=== PATIENT | female | born 1965 | race Caucasian/White ===

== ENCOUNTER 2019-12-08 09:25 | Emergency (ER) | payer MEDICARE, SELFPAY ==
[2019-12-08 09:31] VITALS: BMI 15.5
[2019-12-08 09:34] VITALS: BP 111/79; PULSE 95; RESP 18; TEMP 37; O2SAT 99
--- NOTE | 2019-12-08 10:03 | XR_ITS ---
WS: [id number] EXAM: AP CHEST: PORTABLE UPRIGHT DATE OF EXAM: 12/08/2019, 1030 hours COMPARISON: NONE HISTORY: Patient is 54 years old with dyspnea and cough. Seizure activity. FINDINGS: The cardiac silhouette is normal in size. The mediastinal contours are normal. The pulmonary vas cularity is normal. Chronic lung changes seen. Lungs are hyperinflated. Apical capping mainly on the right. There are surgical staple lines seen in the right superior hilar region with findings of an o ld right thoracotomy presumably related to cancer surgery. Please correlate. Right pleural thickenin g superiorly blunting of the right costophrenic angle. No effusion or pneumothorax. Overall bone dens ity is decreased No acute bony abnormality is seen. XR/XR chest 1V portable [id number] IMPRESSION: Old right thoracotomy changes with posterior staple lines in the right hilum al diogenes the right paratracheal region. Pleural thickening presumably postsurgical i n nature involving the right hemithorax. Chronic lung changes with hyperinflati on. No infiltrate is seen. No definite pulmonary nodule noted by this method of evaluation.
--- NOTE | 2019-12-08 10:03 | ECG_ITS ---
[facility] Test Date: 2019-12-08 Pat Name: Syl Gallo Department: Room: Gender: Female Asset Management Coordinator: : 1965 Requested By: Mark Anne Order Number: [id number] Vale MD: Andrez Tao M.D. Measurements Intervals [place] Rate: 87 P: 70 AK: 210 QRS: 74 QRSD: 100 T: -56 QT: 391 QTc: 471 Interpretive Statements SINUS RHYTHM WITH FIRST DEGREE AV BLOCK ST DEVIATION AND MODERATE T-WAVE ABNORMALITY, CONSIDER ANTEROLATERAL ISCHEMIA [-0.1+ mV T WAVE IN V3-V6] ST DEVIATION AND MODERATE T-WAVE ABNORMALITY, CONSIDER INFERIOR ISCHEMIA [-0.1+ mV T WAVE IN II/aVF] No previous ECG available for comparison Electronically Signed On 12-08-2019 18:58:35 CDT by Andrez Tao M.D. [id number]
[2019-12-08] MEDS: sodium chloride 0.9% 1,000 ML 999 ML IV (10:10)
[2019-12-08 10:11] LABS: Basophils % 0.7 %; Eosinophils % 0.7 %; Hemoglobin 10.9 g/dL (11.5-15.3); Lymphocytes # 1.1 10^3/uL (0.8-4.8); Lymphocytes % 26.2 %; Mean Corpuscular Hemoglobin 30.6 pg (28.0-34.0); Mean Corpuscular Volume 92.7 fL (81-99); Mean Platelet Volume 8.7 fL (7.4-10.4); Monocytes # 0.3 10^3/uL (0.2-0.9); Monocytes % 6.9 %; Neutrophils # 2.78 10^3/uL (1.8-7.7); Neutrophils % 64.3 %; Nucleated Red Blood Cells % 0 %; Platelet Count 213 10^3/cmm (130-400); Red Blood Count 3.56 10^6/uL (4.1-5.3); White Blood Count 4.3 10^3/uL (4.0-10.0)
--- NOTE | 2019-12-08 10:18 | ED_ITS ---
HPI - Seizure General: Chief Complaint: Seizure Stated Complaint: SEIZURE Time Seen by Provider: 12/08/19 09:28 History of Present Illness: HPI Narrative: 84-year-old female comes in complaining of seizures. She has been having seizures since 2009 she is not on any medications for it she does not know any particular triggers. She had 2 this morning 1 at 3 AM another at 8 AM she does tell me she can remember some of the events and during the seizure. The first 1 happened at 3 AM she got up to make something to eat and then her witnessed her having a convulsive- like episode that lasted for a few minutes in a chair she was able to remember immediately after the seizure letter happened prior. It does not sound like there is any postictal phase second episode happened while they are in a vehicle on the way to the hospital and a friend called in the back and was able to somehow stimulator and stopped his seizure. Patient states she cannot recall anything about that particular seizure. They usually see Ambrosio in [place] and then not seen him recently. She as far she knows she is not on any antiseizure medications. She does tell me she thinks at one point she had an EEG and seen a neurologist but was not started on anything she seems to recall that they told her they could not find any thing. The time that I seen the patient she is not postictal. complaint: seizure Onset (ago): minute(s) Description of Episode: loss of consciousness and tonic-clonic movement Duration of episode: 3 Witnessed: Yes - by Bystander () Trauma: No Seizure History: Yes Place: Home Possible Precipitating Event: none Associated symptoms: Reports weakness; Deny chest pain, confusion, cough, diaphoresis, fever(s), anorexia, malaise, rash, short of breath or syncope Treatments prior to arrival: none Review of Systems Const: Denies: fever(s), malaise or diaphoresis ENMT: Denies: throat pain, ear or mastoid pain, nasal discharge or nasal congestion Card: Denies: chest pain or syncope Resp: Denies: dyspnea, productive cough or non-productive cough GI: Denies: abdominal pain, nausea, vomiting, hematemesis, coffee ground emesis, diarrhea, constipation, bloating, hematochezia or melena : Denies: flank pain, difficulty voiding, dysuria, urinary frequency or urinary urgency Skin/Breast: Denies: rash or pruritus Neuro: Denies: confusion PFSH ED PFSH: Medical History (Updated 12/08/19 @ 11:58 by Mark Munson DO) Lung cancer Diagnosed and treated first in 2011 and then a recurrence in 2016. Patient states she has not have any current follow-up with [place] where she was previously treated Seizures Surgical History (Updated 12/08/19 @ 10:36 by Mark Munson DO) History of appendectomy Patient reports she had postop flexion and had a second procedure to incise and drain abscess Social History (Updated 12/08/19 @ 10:36 by Mark Munson DO) Smoking and tobacco status: current every day smoker cigarettes Alcohol intake: never Physical Exam Const: COMMON NORMALS: no acute distress GENERAL APPEARANCE: cooperative and comfortable ORIENTATION/CONSCIOUSNESS: Yes awake, Yes oriented to person, Yes oriented to place and Yes oriented to time HENMT: COMMON NORMALS: normocephalic, atraumatic and hearing grossly normal bilaterally HEAD & SCALP: normocephalic and atraumatic Eye: COMMON NORMALS: Equal, round and reactive pupils present, EOMs intact bilaterally, conjunctivae normal and no scleral icterus CONJUNCTIVA: Yes conjunctivae normal PUPIL: Yes Equal, round and reactive pupils present Neck/C-Spine: COMMON NORMALS: full ROM, no lymphadenopathy, supple and no JVD Lymph: LYMPHATIC: no lymphadenopathy noted and no lymphedema noted Resp: COMMON NORMALS: normal respiratory effort, No retractions, No use of accessory muscles and clear to auscultation bilaterally AUSCULTATION: clear to auscultation bilaterally Cardio: COMMON NORMALS: no JVD, regular rate, regular rhythm and No murmurs present (Cardio) RATE: regular rate RHYTHM: regular rhythm GI: COMMON NORMALS: Soft to palpation and No hepatosplenomegaly present AUSCULTATION: Yes normoactive bowel sounds PALPATION: Yes Soft to palpation, No Tenderness to palpation present (GI), No Guarding due to palpation present (GI) and Yes No hepatosplenomegaly present Extremity: COMMON NORMALS: normal to inspection, capillary refill normal, no clubbing, cyanosis or edema, no calf tenderness and no pedal edema Neuro: SENSORIUM/ORIENTATION: Yes oriented to person, Yes oriented to place and Yes oriented to time Skin: COMMON NORMALS: no rashes or lesions noted GENERAL SKIN EXAM: no rashes or lesions noted Course Vital Signs: Vital signs: Vital Signs Temperature 98.6 F 12/08/19 09:34 Pulse Rate 95 12/08/19 09:34 Respiratory Rate 18 12/08/19 09:34 Blood Pressure 111/79 12/08/19 09:34 Pulse Oximetry 99 12/08/19 09:34 MDM - Seizure MDM Narrative: Medical decision making narrative: Reviewed urine. Patient denies any dysuria urgency or frequency urgency infectious is going to the bathroom will bit less is not having any pain or burning I do not believe her urine at this point represents a cystitis we will go ahead and have her return if she has any further problems or develops symptoms we will get a set up for an outpatient EEG and refer to neurology. Lab Data: Labs: Lab Results 12/08/19 12/08/19 12/08/19 Range/Units 09:38 09:38 12:08 WBC 4.3 (4.0-10.0) 10^3/ uL RBC 3.56 L (4.1-5.3) 10^6/u L Hgb 10.9 L (11.5-15.3) g/dL Hct 33.0 L (37.0-47.0) % MCV 92.7 (81-99) fL MCH 30.6 (28.0-34.0) pg MCHC 33.0 (30.0-36.0) g/dL RDW 15.0 (12.1-15.1) % Plt Count 213 (130-400) 10^3/c mm MPV 8.7 (7.4-10.4) fL Neut % (Auto) 64.3 % Lymph % (Auto) 26.2 % Churchill % (Auto) 6.9 % Eos % (Auto) 0.7 % Baso % (Auto) 0.7 % Neut # (Auto) 2.78 (1.8-7.7) 10^3/u L Lymph # (Auto) 1.1 (0.8-4.8) 10^3/u L Churchill # (Auto) 0.3 (0.2-0.9) 10^3/u L Eos # (Auto) 0.0 (0.0-0.8) 10^3/u L Baso # (Auto) 0.0 (0.0-0.1) 10^3/u L Nucleated RBC % (a uto) 0 % Nucleated RBCs # 0.0 /100WBC Sodium 136 (136-145) mmol/L Potassium 3.4 L (3.5-5.1) mmol/L Chloride 101 (98-107) mmol/L Carbon Dioxide 22 (22-29) mmol/L Anion Gap 16.4 (5-19) BUN 15 (6-20) mg/dL Creatinine 1.0 H (0.5-0.9) mg/dL GFR Calculation 57.4 L (90-130) mL/min Glucose 139 H (65-115) mg/dL Calculated Osmolal ity 281 L (285-295) mOsm/k g Calcium 9.2 (8.5-10.5) mg/dL Magnesium 1.9 (1.7-2.3) mg/dL Total Bilirubin 0.3 (0.15-1.2) mg/dL AST 17 (0-32) U/L ALT 11 (0-33) U/L Alkaline Phosphata se 100 (35-105) IU/L Creatine Kinase 42 (26-192) U/L Total Protein 6.7 (6.6-8.7) g/dL Albumin 3.7 (3.5-5.2) g/dL Globulin 3.0 (1.3-4.6) g/dL Urine Color Yellow (Yellow) Urine Appearance Sl hazy (CLEAR) Urine pH 5 (5-7) Ur Specific Gravit y 1.020 (1.005-1.030) Urine Protein Neg (Negative) Urine Glucose (UA) Norm (Normal) Urine Ketones Negative (Negative) Urine Blood Neg (Negative) Urine Nitrate Negative (Negative) Urine Bilirubin Neg (NEGATIVE) Urine Urobilinogen Norm (Negative) mg/dL Ur Leukocyte Chanel ase Trace H (Negative) Urine RBC 5-10 H (0-2) /hpf Urine WBC 15-25 H (0-5) /hpf Ur Squamous Epith Cells 10-15 H (0-5) Amorphous Sediment Not Reportable Urine Bacteria 2+ H (NONE) Discharge Plan Discharge Patient Disposition: Home Clinical Impression: Pseudoseizure Condition: Stable Prescriptions: No Action gabapentin 600 mg Tablet 1,200 mg PO TID PRN (Reason: Pain) RF: 0 ropinirole 1 mg Tablet 3 mg PO DAILY RF: 0 Celexa 40 mg Tablet 40 mg PO DAILY RF: 0 Keppra 500 mg Tablet 500 mg PO BID RF: 0 potassium chloride 10 mEq Tablet Extended Release 20 meq PO DAILY RF: 0 hydroxyzine HCl 50 mg Tablet 50 mg PO Q4H PRN (Reason: unknown) RF: 0 simvastatin 40 mg Tablet 40 mg PO QPM RF: 0 levothyroxine 25 mcg Tablet 25 mcg PO DAILY RF: 0 Ativan 0.5 mg Tablet 0.5 mg PO DAILY PRN (Reason: unknown) RF: 0 Calcium 500 500 mg calcium (1,250 mg) Tablet 500 mg PO DAILY RF: 0 Ambien 5 mg Tablet 5 mg PO BEDTIME RF: 0 Ventolin HFA 90 mcg/actuation Hfa Aerosol Inhaler 2 puff INHALATION 6XD PRN (Reason: Shortness Of Breath) RF: 0 amitriptyline 100 mg Tablet 100 mg PO BEDTIME RF: 0 Dexilant 60 mg Capsule,Biphase Delayed Releas 60 mg PO DAILY RF: 0 Naprosyn 1 tab PO DAILY RF: 0 Referrals: Rosalino Andersen MD [Family Provider] - Discharge Diet: Usual diet Discharge Activity: Resume usual activity Activity Restrictions/Additional Instructions: Furl for further evaluation to neurology Case management also set you up for an EEG Coding Level of Care Code ED Dungeon Master for [place] Fwd Exam Comprehensive
[2019-12-08 10:24] LABS: Alanine Aminotransferase 11 U/L (0-33); Albumin Level 3.7 g/dL (3.5-5.2); Alkaline Phosphatase 100 IU/L (35-105); Anion Gap 16.4 (5-19); Aspartate Amino Transferase 17 U/L (0-32); Blood Urea Nitrogen 15 mg/dL (6-20); Calcium 9.2 mg/dL (8.5-10.5); Carbon Dioxide 22 mmol/L (22-29); Chloride 101 mmol/L (98-107); Creatine Phosphokinase 42 U/L (26-192); Glomerular Filtration Rate 57.4 mL/min (90-130); Glucose 139 mg/dL (65-115); Magnesium 1.9 mg/dL (1.7-2.3); Osmolality Calculated 281 mOsm/kg (285-295); Potassium 3.4 mmol/L (3.5-5.1); Sodium 136 mmol/L (136-145); Total Bilirubin 0.3 mg/dL (0.15-1.2); Total Protein 6.7 g/dL (6.6-8.7)
--- NOTE | 2019-12-08 11:03 | CT_ITS ---
WS: [id number] CT HEAD NONCONTRAST HISTORY: AMS TECHNIQUE: Contiguous axial imaging performed through the brain in 2.5 mm imaging. Bone and soft tiss ue windows. Sagittal and coronal reformats reviewed. All CT scans at [facility] use at ast one of these dose optimization techniques: automated exposure control; mA and/or kV adjustment pe r patient size (includes targeted exams where dose is matched to clinical indication); or iterative r econstruction. DLP: 975.58 mGy.cm COMPARISON: None available. No acute intracranial hemorrhage, midline shift or mass effect. Mild atrophy and mild chronic microvascular ischemic disease. Small lacunar infarct anterior limb of the LEFT internal capsule. Ventricles: Normal size with no hydrocephalus. No inferior displacement of cerebellar tonsils. Paranasal sinuses: As visualized are clear. Mastoid air cells: Well pneumatized. Calvarium and scalp: Skull is intact with no soft tissue edema or swelling. CT/CT head wo con* [id number] IMPRESSION: 1. No acute intracranial hemorrhage or edema. 2. Remote lacunar infarct LEFT internal capsule.
[2019-12-08 12:50] LABS: Add Urine Microscopic? YES; Bilirubin Urine Neg (NEGATIVE); Blood Urine Neg (Negative); Glucose Urine UA Norm (Normal); Ketones Urine Negative (Negative); Leukocyte Esterase Urine Trace (Negative); Nitrate Urine Negative (Negative); Protein Urine Neg (Negative); Urine Appearance SL Hazy (CLEAR); Urine Color Yellow (Yellow); Urobilinogen Urine Norm (Negative); pH Urine 5 (5-7)
[2019-12-08 12:53] LABS: Bacteria Urine 2+
[2019-12-08 12:54] LABS: WBC Urine 15-25 /hpf (0-5)
[2019-12-08 12:55] LABS: Add Urine Culture? No
[2019-12-08 13:17] VITALS: BP 138/57; PULSE 88; RESP 20; O2SAT 100
--- NOTE | 2019-12-09 14:56 | DCPLANNER ---
Addendum entered by Jayda Medina 12/09/19 15:01: client services manager sent patient a letter informing patient that rn case management was trying to reach patient for appointment information. Original Note: client services manager had order to schedule an out patient EEG and a follow up appointment for patient with Dr. Woodard. client services manager called the office of Dr. Woodard, spoke with Staci. An EEG was scheduled for Sunday, December 17, 2019 and a follow up appointment scheduled for , January 08, 2020 at 2:[address] Woodard. client services manager faxed order for EEG to Dr. James office. client services manager called patient to inform patient of the scheduled appointments. client services manager called phone number and it was disconnected. client services manager unable to speak with patient or leave a voicemail for patient. client services manager called Staci back and cancelled the scheduled appointments, due to not being able to confirm appointment with patient.
== END 2019-12-08 13:19 | disposition home or self-care (01) ==
PROVIDERS: Emergency Provider Family Medicine; Family Provider Family Medicine
DX: G40.89 Other seizures (principal); Z85.118 Personal history of other malignant neoplasm of bronchus and lung; F17.210 Nicotine dependence, cigarettes, uncomplicated
CPT/HCPCS: 12345; 70450; 71045; 80053; 81001; 82550; 83735; 85025; 93005; 96360; 99283; 99284; J7030